=== PATIENT | male | born 1940 | race Caucasian/White ===

== ENCOUNTER 2017-08-30 22:48 | Inpatient (IN) | payer MEDICARE, BC ==
[2017-08-31] MEDS: SODIUM CHLORIDE 0.9% 500 ML BAG IV* (00:10)
[2017-08-31] MEDS: SOD CHLORIDE 0.9% 2,000 ML IV (00:10)
[2017-08-31] MEDS: SOD CHLORIDE 0.9% 500 ML IV (00:10)
[2017-08-31] MEDS ORDERED: NORepinephrine 8MG/250 ML (PMX 250 ML (00:14)
[2017-08-31] MEDS: NORepinephrine 8MG/250 ML (PMX 250 ML IV (00:20)
[2017-08-31 00:33] LABS: ADD MAN DIFF? NO
[2017-08-31 00:35] LABS: WHITE BLOOD COUNT 8.8 10^3/ul (4.8-10.8)
[2017-08-31 00:35] LABS: ABNORMAL IP MESSAGE 1; BASOPHILS % 0.3 % (0.0-2.0); EOSINOPHILS % 0.2 % (0.0-7.0); HEMATOCRIT 49.2 % (42.0-52.0); HEMOGLOBIN 15.5 g/dl (14.0-18.0); LYMPHOCYTES # 1.6 10^3/ul (0.8-2.9); LYMPHOCYTES % 18.2 % (15.0-51.0); MEAN CORPUSCULAR HEMOGLOBIN 33.4 pg (29.0-33.0); MEAN CORPUSCULAR HGB CONC 31.5 g/dl (32.0-37.0); MEAN PLATELET VOLUME 10.2 fl (7.4-10.4); MONOCYTE # 0.6 10^3/ul (0.3-0.9); NEUTROPHIL # 6.5 10^3/ul (1.6-7.5); NEUTROPHILS % 73.5 % (39.0-77.0); PLATELET COUNT 186 10^3/UL (140-415); POSITIVE DIFF @See below; RED BLOOD COUNT 4.64 10^6/ul (4.70-6.10); RED CELL DISTRIBUTION WIDTH 13.9 % (11.5-14.5)
[2017-08-31] MEDS: PROPOFOL 100 ML IV (00:40)
[2017-08-31 00:53] LABS: INR 1.47; PROTIME 18.1 Sec (11.9-14.9); PT RATIO 1.4
[2017-08-31] MEDS: DOPamine-D5W 1.6 MG/ML 250 ML IV ×4 (00:55→18:17)
[2017-08-31 00:56] LABS: ALANINE AMINOTRANSFERASE 35 IU/L (13-69); ALBUMIN 4.3 g/dl (3.3-4.9); ALBUMIN/GLOBULIN RATIO 1.65; ALKALINE PHOSPHATASE 118 IU/L (42-121); ANION GAP 41 (8-16); ASPARTATE AMINO TRANSFERASE 63 IU/L (15-46); BLOOD UREA NITROGEN 36 mg/dl (7-20); CALCIUM 8.7 mg/dl (8.4-10.2); CHLORIDE 109 mmol/L (97-110); CREATININE 3.26 mg/dl (0.61-1.24); GLUCOSE 184 mg/dl (70-220); MAGNESIUM 3.6 mg/dl (1.7-2.5); PHOSPHORUS 11.1 mg/dl (2.5-4.9); POTASSIUM 3.8 mmol/L (3.5-5.1); SODIUM 153 mmol/L (135-144); TOTAL PROTEIN 6.9 g/dl (6.1-8.1)
[2017-08-31 01:05] LABS: CARBON DIOXIDE 7 mmol/L (21-31)
[2017-08-31] MEDS ORDERED: DOPamine-D5W 1.6 MG/ML 250 ML (01:07)
[2017-08-31 01:37] LABS: AADO2 Arterial 427.8 mmHg (7.0-24.0); Allen Test ACCEPTAB; Arterial Base Excess -28.7 mmol/L (-3.0-3); Arterial Blood Gas Oxygen Sat 98.3 mmHG (95.0-100.0); Arterial COHb 0.4 % (0.0-3.0); Arterial Fraction of Oxyhgb 97.7 % (93.0-99.0); Arterial HCO3 6.5 mmol/L (22.0-26.0); Arterial MetHb 0.2 % (0.0-1.5); Arterial Total Hemglobin 14.6 g/dl (12.0-18.0); Arterial pCO2 44.5 mmhg (35-45); MODE VENT - AC; Site Right Radial
[2017-08-31] MEDS: SODIUM BICARBONATE (IV ADD) 150 MEQ in DEXTROSE 5% 1,000 ML IV ×3 (02:00→15:15)
[2017-08-31] MEDS: VECURONIUM 100 MG in DEXTROSE 5% 100 ML IV (03:38)
[2017-08-31] MEDS ORDERED: VANCOMYCIN IV PER PHARMACY XX (04:30)
[2017-08-31] MEDS ORDERED: DEXTROSE 50% 50 ML SYRINGE IV ×2 (04:30)
[2017-08-31 05:35] LABS: ALANINE AMINOTRANSFERASE 57 IU/L (13-69); ALBUMIN 3.6 g/dl (3.3-4.9); ALBUMIN/GLOBULIN RATIO 1.44; ALKALINE PHOSPHATASE 142 IU/L (42-121); ANION GAP 35 (8-16); ASPARTATE AMINO TRANSFERASE 89 IU/L (15-46); BLOOD UREA NITROGEN 38 mg/dl (7-20); CALCIUM 7.8 mg/dl (8.4-10.2); CHLORIDE 111 mmol/L (97-110); CREATININE 3.22 mg/dl (0.61-1.24); GLUCOSE 192 mg/dl (70-220); POTASSIUM 3.6 mmol/L (3.5-5.1); SODIUM 152 mmol/L (135-144); TOTAL PROTEIN 6.1 g/dl (6.1-8.1)
[2017-08-31 05:42] LABS: CARBON DIOXIDE 10 mmol/L (21-31)
[2017-08-31 05:47] LABS: TROPONIN-I 0.056 ng/ml (0.00-0.12)
[2017-08-31 05:50] LABS: LACTIC ACID 15.2 mmol/L (0.5-2.0)
[2017-08-31] MEDS: ACCU-CHEK XX ×19 (05:59→23:00)
[2017-08-31 07:45] LABS: AADO2 Arterial 253.4 mmHg (7.0-24.0); Allen Test ACCEPTAB; Arterial Blood Gas Oxygen Sat 91.5 mmHG (95.0-100.0); Arterial COHb 1.3 % (0.0-3.0); Arterial HCO3 8.2 mmol/L (22.0-26.0); Arterial MetHb 0.3 % (0.0-1.5); Arterial Total Hemglobin 15.7 g/dl (12.0-18.0); Arterial pCO2 36.2 mmhg (35-45); MODE VENT - AC; Site Right Radial; Temperature 32.3 C
[2017-08-31 07:48] LABS: WHITE BLOOD COUNT 4.3 10^3/ul (4.8-10.8)
[2017-08-31 07:48] LABS: ABNORMAL IP MESSAGE 1; HEMATOCRIT 47.7 % (42.0-52.0); HEMOGLOBIN 15.3 g/dl (14.0-18.0); MEAN CORPUSCULAR HEMOGLOBIN 33.3 pg (29.0-33.0); MEAN CORPUSCULAR HGB CONC 32.1 g/dl (32.0-37.0); MEAN CORPUSCULAR VOLUME 103.9 fl (82.0-101.0); MEAN PLATELET VOLUME 9.9 fl (7.4-10.4); NUCLEATED RED BLOOD CELLS% 0.5 /100WBC (0.0-0.0); PLATELET COUNT 149 10^3/UL (140-415); POSITIVE DIFF @See below; RED BLOOD COUNT 4.59 10^6/ul (4.70-6.10); RED CELL DISTRIBUTION WIDTH 13.3 % (11.5-14.5)
[2017-08-31 07:56] LABS: ADD MAN DIFF? YES
[2017-08-31 08:08] LABS: ANION GAP 32 (8-16); BLOOD UREA NITROGEN 42 mg/dl (7-20); CALCIUM 7.6 mg/dl (8.4-10.2); CARBON DIOXIDE 11 mmol/L (21-31); CHLORIDE 110 mmol/L (97-110); CREATININE 3.34 mg/dl (0.61-1.24); GLUCOSE 221 mg/dl (70-220); POTASSIUM 3.6 mmol/L (3.5-5.1); SODIUM 149 mmol/L (135-144)
[2017-08-31] MEDS ORDERED: NA BICARBONATE 8.4% 50 ML SYG ×2 (08:12)
[2017-08-31 08:14] LABS: LACTIC ACID 14.5 mmol/L (0.5-2.0)
[2017-08-31] MEDS: NA BICARBONATE 8.4% 50 ML SYG IV ×4 (08:31→18:07)
[2017-08-31] MEDS ORDERED: HEPARIN 1000 UNITS/ML 10 ML INJ (08:57)
[2017-08-31 09:39] LABS: ANISOCYTOSIS 2+ (0-0); BAND NEUTROPHILS #M 1.9 10^3/ul (0.0-0.6); BAND NEUTROPHILS % (M) 45 % (0-4); BURR CELLS 2+ (0-0); ERYTHROBLAST% (NRBC) (M) 2 % (0-0); LYMPHOCYTES #M 0.6 10^3/ul (0.8-2.9); LYMPHOCYTES % (M) 14 % (15-51); METAMYELOCYTES #M 0.2 10^3/ul (0.0-0.0); METAMYELOCYTES %M 6 % (0-0); MICROCYTOSIS 1+ (0-0); MONOCYTE #M 0.1 10^3/ul (0.3-0.9); MONOCYTES % (M) 4 % (0-11); MYELOCYTES % (M) 1 % (0-0); PLATELET ESTIMATE NORMAL; POIKILOCYTOSIS 3+ (0-0); POLYCHROMASIA 3+ (0-0); REACTIVE LYMPHOCYTES #M 0.3 10^3/ul (0.0-0.0); REACTIVE LYMPHOCYTES% (M) 9 % (0-0); SEGMENTED NEUTROPHILS (M) % 21 % (39-77); SMUDGE%M 15 % (0-0)
[2017-08-31] MEDS: INSULIN HUMAN REGULAR 100 UNIT in SOD CHLORIDE 0.9% 99 ML IV (09:55)
[2017-08-31] MEDS: AZTREONAM 2 GM in SOD CHLORIDE 0.9% 100 ML IVPB (09:59)
[2017-08-31] MEDS: VANCOMYCIN 1.5 GM in SOD CHLORIDE 0.9% 250 ML IVPB (09:59)
[2017-08-31] MEDS: FAMOTIDINE 20 MG INJ IV (10:00)
[2017-08-31 10:25] LABS: HAAIG REFLEX REFLEX FILED
[2017-08-31 11:02] LABS: TROPONIN-I 0.066 ng/ml (0.00-0.12)
[2017-08-31] MEDS: VASOPRESSIN 60 UNIT in DEXTROSE 5% 57 ML IV ×2 (11:15→22:00)
[2017-08-31] MEDS ORDERED: PHENYLephrine 20MG IN 250 ML 250 ML ×3 (12:03→16:13)
[2017-08-31 12:08] LABS: AADO2 Arterial 312.3 mmHg (7.0-24.0); Allen Test ACCEPTAB; Arterial Blood Gas Oxygen Sat 93.4 mmHG (95.0-100.0); Arterial COHb 1.2 % (0.0-3.0); Arterial HCO3 15.5 mmol/L (22.0-26.0); Arterial MetHb 0.3 % (0.0-1.5); Arterial Total Hemglobin 15.4 g/dl (12.0-18.0); MODE VENT - AC; Site Right Radial
[2017-08-31 12:10] LABS: HEPATITIS B SURFACE ANTIGEN NEGATIVE (NEGATIVE)
[2017-08-31 12:28] LABS: HEPATITIS B CORE ANTIBODY NEGATIVE (NEGATIVE)
[2017-08-31] MEDS ORDERED: ALBUMIN HUMAN 25% 100 ML IV (12:30)
[2017-08-31] MEDS: PHENYLephrine 80 MG in DEXTROSE 5% 492 ML IV ×4 (13:30→17:23)
[2017-08-31 13:45] LABS: WHITE BLOOD COUNT 1.5 10^3/ul (4.8-10.8)
[2017-08-31 13:45] LABS: ABNORMAL IP MESSAGE 1; HEMOGLOBIN 13.8 g/dl (14.0-18.0); MEAN CORPUSCULAR HEMOGLOBIN 33.7 pg (29.0-33.0); MEAN CORPUSCULAR HGB CONC 32.9 g/dl (32.0-37.0); MEAN CORPUSCULAR VOLUME 102.4 fl (82.0-101.0); MEAN PLATELET VOLUME 9.9 fl (7.4-10.4); NUCLEATED RED BLOOD CELLS% 1.9 /100WBC (0.0-0.0); PLATELET COUNT 74 10^3/UL (140-415); POSITIVE DIFF @See below; RED CELL DISTRIBUTION WIDTH 13.2 % (11.5-14.5)
[2017-08-31 13:47] LABS: ADD MAN DIFF? YES
[2017-08-31] MEDS: HEPARIN 1000 UNITS/ML 10 ML INJ CATHETER (14:02)
[2017-08-31 14:03] LABS: AMYLASE 1047 U/L (11-123); ANION GAP 28 (8-16); BLOOD UREA NITROGEN 40 mg/dl (7-20); CALCIUM 8.2 mg/dl (8.4-10.2); CARBON DIOXIDE 19 mmol/L (21-31); CHLORIDE 107 mmol/L (97-110); CREATININE 3.01 mg/dl (0.61-1.24); GLUCOSE 195 mg/dl (70-220); LIPASE 124 U/L (23-300); MAGNESIUM 2.8 mg/dl (1.7-2.5); SODIUM 151 mmol/L (135-144)
[2017-08-31 14:17] LABS: INR 2.07; PROTIME 23.8 Sec (11.9-14.9); PT RATIO 1.9
[2017-08-31 14:19] LABS: POTASSIUM 2.5 mmol/L (3.5-5.1)
[2017-08-31 14:20] LABS: LACTIC ACID 17.4 mmol/L (0.5-2.0)
[2017-08-31 14:45] LABS: ANISOCYTOSIS 2+ (0-0); BAND NEUTROPHILS #M 0.2 10^3/ul (0.0-0.6); BAND NEUTROPHILS % (M) 14 % (0-4); BURR CELLS 3+ (0-0); ERYTHROBLAST% (NRBC) (M) 2 % (0-0); GIANT THROMBO% (M) 2 % (0-0); HEPATITIS C VIRAL ANTIBODY NEGATIVE (NEGATIVE); LYMPHOCYTES #M 0.6 10^3/ul (0.8-2.9); LYMPHOCYTES % (M) 45 % (15-51); METAMYELOCYTES #M 0.1 10^3/ul (0.0-0.0); METAMYELOCYTES %M 7 % (0-0); MICROCYTOSIS 2+ (0-0); MONOCYTES % (M) 1 % (0-11); MYELOCYTES % (M) 4 % (0-0); PLATELET ESTIMATE DECREASED; POIKILOCYTOSIS 3+ (0-0); POLYCHROMASIA 3+ (0-0); REACTIVE LYMPHOCYTES #M 0.1 10^3/ul (0.0-0.0); REACTIVE LYMPHOCYTES% (M) 13 % (0-0); SEG NEUT #M 0.2 10^3/ul (1.6-7.5); SEGMENTED NEUTROPHILS (M) % 15 % (39-77); SMUDGE%M 16 % (0-0)
[2017-08-31] MEDS: AZTREONAM 1 GM/NS (PMX) 50 ML IVPB ×2 (15:47→22:00)
[2017-08-31 16:36] LABS: ANION GAP 28 (8-16); BLOOD UREA NITROGEN 37 mg/dl (7-20); CALCIUM 6.8 mg/dl (8.4-10.2); CARBON DIOXIDE 13 mmol/L (21-31); CHLORIDE 112 mmol/L (97-110); CREATININE 2.82 mg/dl (0.61-1.24); GLUCOSE 155 mg/dl (70-220); SODIUM 151 mmol/L (135-144)
[2017-08-31] MEDS ORDERED: POTASSIUM CHLORIDE 50 ML (16:37)
[2017-08-31] MEDS: POTASSIUM CHLORIDE 100 ML IVPB ×3 (16:38→20:00)
[2017-08-31 16:41] LABS: POTASSIUM 2.4 mmol/L (3.5-5.1)
[2017-08-31 17:11] LABS: AADO2 Arterial 612.8 mmHg (7.0-24.0); Allen Test ACCEPTAB; Arterial Base Excess -18.1 mmol/L (-3.0-3); Arterial Blood Gas Oxygen Sat 91.2 mmHG (95.0-100.0); Arterial COHb 1.3 % (0.0-3.0); Arterial Fraction of Oxyhgb 89.7 % (93.0-99.0); Arterial MetHb 0.3 % (0.0-1.5); Arterial pCO2 51.1 mmhg (35-45); MODE VENT - AC; Site Left Radial; Temperature 32.8 C
[2017-08-31] MEDS: MIDAZOLAM (DRIP) 50 mg/50 mL 50 ML IV (18:27)
== END 2017-08-31 22:09 | disposition expired | DRG 393 ==
LOC: E/R 22:48 → ICU 08-31 05:33
PROVIDERS: Internal Medicine
PROC: 5A1935Z Respiratory Ventilation, Less than 24 Consecutive Hours (ICD-10-PCS; principal; 2017-08-31)
PROC: 02HV33Z Insertion of Infusion Device into Superior Vena Cava, Percutaneous Approach (ICD-10-PCS; 2017-08-31)
PROC: 5A12012 Performance of Cardiac Output, Single, Manual (ICD-10-PCS; 2017-08-31)
PROC: 06HM33Z Insertion of Infusion Device into Right Femoral Vein, Percutaneous Approach (ICD-10-PCS; 2017-08-31)
PROC: 0BH17EZ Insertion of Endotracheal Airway into Trachea, Via Natural or Artificial Opening (ICD-10-PCS; 2017-08-31)
PROC: 5A2204Z Restoration of Cardiac Rhythm, Single (ICD-10-PCS; 2017-08-31)
DX: K40.30 Unilateral inguinal hernia, with obstruction, without gangrene, not specified as recurrent (principal); J96.01 Acute respiratory failure with hypoxia; I46.9 Cardiac arrest, cause unspecified; N17.9 Acute kidney failure, unspecified; E87.2 Acidosis; K55.9 Vascular disorder of intestine, unspecified; E11.9 Type 2 diabetes mellitus without complications; E78.5 Hyperlipidemia, unspecified; I10 Essential (primary) hypertension; Z85.46 Personal history of malignant neoplasm of prostate; Z90.79 Acquired absence of other genital organ(s); Z85.72 Personal history of non-Hodgkin lymphomas; Z92.21 Personal history of antineoplastic chemotherapy; Z86.19 Personal history of other infectious and parasitic diseases; J31.0 Chronic rhinitis; K76.0 Fatty (change of) liver, not elsewhere classified; E66.3 Overweight; Z68.29 Body mass index [BMI] 29.0-29.9, adult; K21.9 Gastro-esophageal reflux disease without esophagitis
CPT/HCPCS: 31500; 36415; 36600; 71045; 74018; 74176; 80048; 80053; 82150; 82803; 82962; 83605; 83690; 83735; 84100; 84484; 85025; 85384; 85610; 85730; 86704; 86709; 86803; 87040; 87081; 87340; 90935; 92950; 93005; 93306; 94002; 96374; 96375; 99291-25